=== PATIENT | female | born 1990 | race African-American/Black ===

== ENCOUNTER 2018-05-06 21:08 | Emergency (ER) | payer MEDICAID ==
[~2018-05-06] VITALS: Ht 172.7 cm; Wt 81.0 kg
[~2018-05-06 21:08] MED LIST: METFORMIN; PREN-88; VIC; [UNRECOGNIZED DRUG - CODE]
[2018-05-06 21:27] VITALS: BP 153/87
== END 2018-05-07 00:29 | disposition left against medical advice (07) ==
LOC: ER 21:08
DX: Z53.21 Procedure and treatment not carried out due to patient leaving prior to being seen by health care provider (principal)

== ENCOUNTER 2021-11-23 09:06 | Emergency (ER) | payer MEDICAID ==
[~2021-11-23] VITALS: Ht 167.6 cm; Wt 70.0 kg
[2021-11-23] MEDS ORDERED: MAGNESIUM/ALUMINUM HYDROXIDE/SIMETHICONE 30ML UDC PO STA (09:23)
[2021-11-23] MEDS ORDERED: FAMOTIDINE 20MG/2ML VIAL IV STA (09:23)
[2021-11-23] MEDS ORDERED: SODIUM CHLORIDE 0.9% 1,000 ML IV ONE (09:30)
[2021-11-23] MEDS ORDERED: HALOPERIDOL LACTATE 5MG/ML VIAL IM ONE (09:30)
[2021-11-23 09:31] LABS: BASOPHILS % 0.3 % (0.0-2.0); EOSINOPHILS % 0.1 % (0.0-5.0); HEMATOCRIT. 42.4 % (36.0-48.0); HEMOGLOBIN. 14.4 g/dL (12.0-16.0); LYMPHOCYTES % 19.8 % (20.0-50.0); MEAN CORPUSCULAR HEMOGLOBIN 30.6 pg (28.0-32.0); MEAN CORPUSCULAR VOLUME 89.9 fL (81.0-99.0); MONOCYTES % 4.5 % (2.0-8.0); NEUTROPHILS % 75.3 % (40.0-76.0); PLATELET 185 x1000/uL (130-400); RED BLOOD CELL COUNT 4.71 mill/uL (4.2-5.4); RED CELL DISTRIBUTION WIDTH 12.8 % (11.6-14.6)
[2021-11-23 09:41] LABS: CHLORIDE 102 mEq/L (98-107)
[2021-11-23 09:43] LABS: HCG SCREEN NEGATIVE
[2021-11-23 09:45] LABS: ETHANOL BLOOD < 10 mg/dL
[2021-11-23] MEDS ORDERED: METOCLOPRAMIDE HCL 10MG/2ML VIAL IV NR (10:45)
[2021-11-23] MEDS ORDERED: MORPHINE SULFATE 4 MG/ML CPJ (NOT FOR IM USE) IV NR (10:45)
[2021-11-23 11:11] VITALS: BP 183/93
[2021-11-23] MEDS ORDERED: NAP5EC MT (12:49)
[2021-11-23] MEDS ORDERED: MAG355OR20 PO (12:49)
[2021-11-23] MEDS ORDERED: METO-293 MT (12:49)
== END 2021-11-23 13:20 | disposition home or self-care (01) ==
LOC: ER 09:14
DX: N20.0 Calculus of kidney (principal); E11.9 Type 2 diabetes mellitus without complications
CPT/HCPCS: 36415; 71045; 74176; 76700; 80053; 80320; 83605; 83690; 84703; 85025; 96361; 96372; 96374; 96375; 99285; J1630; J2270; J2765; J3490; J7030; G0480

== ENCOUNTER 2021-11-26 16:53 | Emergency (ER) | payer BC, MEDICAID ==
[~2021-11-26] VITALS: Ht 167.6 cm; Wt 87.0 kg
[~2021-11-26 16:53] MED LIST changes: +MAG355OR20 PO; +METO-293 MT; +NAP5EC MT
[2021-11-26] MEDS ORDERED: MORPHINE SULFATE 4 MG/ML CPJ (NOT FOR IM USE) IV STA (17:27)
[2021-11-26] MEDS ORDERED: ONDANSETRON HCL 4MG/2ML INJ IV STA (17:27)
[2021-11-26] MEDS ORDERED: SODIUM CHLORIDE 0.9% 1,000 ML IV ONE (17:30)
[2021-11-26 18:30] LABS: BASOPHILS % 0.7 % (0.0-2.0); EOSINOPHILS % 0.3 % (0.0-5.0); HEMATOCRIT. 40.7 % (36.0-48.0); HEMOGLOBIN. 14.2 g/dL (12.0-16.0); LYMPHOCYTES % 29.8 % (20.0-50.0); MEAN CORPUSCULAR HEMOGLOBIN 30.9 pg (28.0-32.0); MEAN CORPUSCULAR VOLUME 88.8 fL (81.0-99.0); MONOCYTES % 7.5 % (2.0-8.0); NEUTROPHILS % 61.7 % (40.0-76.0); RED BLOOD CELL COUNT 4.59 mill/uL (4.2-5.4); RED CELL DISTRIBUTION WIDTH 12.8 % (11.6-14.6)
[2021-11-26 18:31] LABS: CHLORIDE 99 mEq/L (98-107)
[2021-11-26 18:36] LABS: HCG SCREEN NEGATIVE
[2021-11-26 18:50] LABS: MEAN PLATELET VOLUME 10.8 fl (7.4-10.4); PLATELET 136 x1000/uL (130-400)
[2021-11-26] MEDS ORDERED: MORPHINE SULFATE 4 MG/ML CPJ (NOT FOR IM USE) IV NR (20:45)
[2021-11-26] MEDS ORDERED: METOCLOPRAMIDE HCL 10MG/2ML VIAL IV NR (20:45)
[2021-11-26 20:51] VITALS: BP 146/87
[2021-11-26] MEDS ORDERED: METO-293 MT (21:41)
[2021-11-26] MEDS ORDERED: DICY10CA88 MT (21:41)
[2021-11-26 21:47] LABS: CLARITY URINE CLOUDY (CLEAR); COLOR URINE ORANGE (YELLOW); KETONES URINE 3+ (NEGATIVE); LEUKOCYTE ESTERASE URINE TRACE (NEGATIVE); NITRITE URINE NEGATIVE (NEGATIVE); OCCULT BLOOD URINE 3+ (NEGATIVE); PROTEIN URINE 2+ (NEGATIVE); SPECIFIC GRAVITY URINE 1.056 (1.005-1.030)
== END 2021-11-26 22:48 | disposition home or self-care (01) ==
LOC: ER 16:53
DX: R10.84 Generalized abdominal pain (principal); E11.65 Type 2 diabetes mellitus with hyperglycemia; I10 Essential (primary) hypertension; E86.0 Dehydration; R00.0 Tachycardia, unspecified; R11.2 Nausea with vomiting, unspecified; Z79.84 Long term (current) use of oral hypoglycemic drugs; Z79.899 Other long term (current) drug therapy
CPT/HCPCS: 36415; 74177; 80053; 81003; 81025; 83690; 84484; 84703; 85025; 93005; 96361; 96374; 96375; 96376; 99285; J2270; J2405; J2765; J7030

== ENCOUNTER 2022-03-10 11:10 | Emergency (ER) | payer BC, MEDICAID ==
[~2022-03-10] VITALS: Ht 167.6 cm; Wt 70.0 kg
[~2022-03-10 11:10] MED LIST changes: +DICY10CA88 MT
[2022-03-10 11:34] VITALS: BP 144/91
[2022-03-10] MEDS ORDERED: BACITRACIN ZINC OINT UDPKT TOP ONE (14:45)
[2022-03-10] MEDS ORDERED: LIDOCAINE HCL/PF 1% 10 MG/ML 5ML VIAL INFIL ONE (14:45)
[2022-03-10] MEDS ORDERED: SULF1TAB48 MT (16:28)
[2022-03-10] MEDS ORDERED: AMOX1TAB16 MT (16:28)
== END 2022-03-10 16:45 | disposition home or self-care (01) ==
LOC: ER 11:13
DX: N76.4 Abscess of vulva (principal); E11.9 Type 2 diabetes mellitus without complications; Z98.890 Other specified postprocedural states; Z79.899 Other long term (current) drug therapy
CPT/HCPCS: 10060; 99282; 99283

== ENCOUNTER 2022-03-12 18:45 | Emergency (ER) | payer MEDICAID ==
[~2022-03-12] VITALS: Ht 167.6 cm; Wt 70.0 kg
[~2022-03-12 18:45] MED LIST changes: +AMOX1TAB16 MT; +SULF1TAB48 MT
[2022-03-12] MEDS ORDERED: ACETAMINOPHEN 325MG TABLET PO NR (22:00)
[2022-03-12] MEDS: ACETAMINOPHEN 325MG TABLET PO ONE (22:04)
[2022-03-12] MEDS: LIDOCAINE 5% PATCH TOP SCH (22:04)
[2022-03-12] MEDS: LIDOCAINE 5% PATCH TOP ONE (22:57)
[2022-03-12] MEDS ORDERED: IBUP-2029 MT (23:15)
[2022-03-12] MEDS ORDERED: LIDO700A15 TP (23:15)
[2022-03-12] MEDS ORDERED: BACL-141 MT (23:15)
[2022-03-12] MEDS ORDERED: MED4 MT (23:15)
[2022-03-12 23:25] VITALS: BP 146/89
[2022-03-12] MEDS: HYDROCODONE/ACETAMINOPHEN 5/325MG TABLET PO ONE (23:25)
== END 2022-03-12 23:31 | disposition home or self-care (01) ==
LOC: ER 18:45
DX: S13.4XXA Sprain of ligaments of cervical spine, initial encounter (principal); M25.512 Pain in left shoulder; M25.552 Pain in left hip; E11.9 Type 2 diabetes mellitus without complications; I10 Essential (primary) hypertension; Z13.9 Encounter for screening, unspecified; Z79.899 Other long term (current) drug therapy; V49.9XXA Car occupant (driver) (passenger) injured in unspecified traffic accident, initial encounter; Y93.89 Activity, other specified; Y92.89 Other specified places as the place of occurrence of the external cause; Y99.8 Other external cause status
CPT/HCPCS: 73502; 81025; 99283

== ENCOUNTER 2022-06-07 14:49 | Emergency (ER) | payer BC, MEDICAID ==
[~2022-06-07] VITALS: Ht 167.6 cm; Wt 77.0 kg
[~2022-06-07 14:49] MED LIST changes: +BACL-141 MT; +IBUP-2029 MT; +LIDO700A15 TP; +MED4 MT
[2022-06-07 14:53] VITALS: BP 171/90
== END 2022-06-07 17:28 | disposition left against medical advice (07) ==
LOC: ER 14:49
DX: Z53.21 Procedure and treatment not carried out due to patient leaving prior to being seen by health care provider (principal)
CPT/HCPCS: 82962

== ENCOUNTER 2023-07-24 09:56 | Emergency (ER) | payer BC ==
[~2023-07-24] VITALS: Ht 167.6 cm; Wt 73.0 kg
[~2023-07-24 09:56] MED LIST changes: +DICY-18 MT; -DICY10CA88 MT
[2023-07-24 10:00] VITALS: BP 138/88; PULSE 91; RESP 16; TEMP 98.1; O2SAT 99
[2023-07-24] MEDS ORDERED: SODIUM CHLORIDE 0.9% 1,000 ML IV ONE ×2 (10:15)
[2023-07-24 10:56] LABS: BASOPHILS % 0.6 % (0.0-2.0); EOSINOPHILS % 0.9 % (0.0-5.0); HEMATOCRIT. 39.7 % (36.0-48.0); HEMOGLOBIN. 13.7 g/dL (12.0-16.0); LYMPHOCYTES % 39.3 % (20.0-50.0); MEAN CORPUSCULAR HEMOGLOBIN 31.4 pg (28.0-32.0); MEAN CORPUSCULAR HGB CONC 34.4 g/dL (31.0-37.0); MEAN CORPUSCULAR VOLUME 91.3 fL (81.0-99.0); MEAN PLATELET VOLUME 11.2 fl (7.4-10.4); MONOCYTES % 7.4 % (2.0-8.0); NEUTROPHILS % 51.8 % (40.0-76.0); PLATELET 180 x1000/uL (130-400); RED BLOOD CELL COUNT 4.35 mill/uL (4.2-5.4); RED CELL DISTRIBUTION WIDTH 11.6 % (11.6-14.6); WHITE BLOOD COUNT 5.1 x1000/uL (4.5-11.0)
[2023-07-24 11:39] LABS: HCG SCREEN NEGATIVE
[2023-07-24 12:08] LABS: ALANINE AMINOTRANSFERASE 13 IU/L (10-49); ALBUMIN 4.3 g/dL (3.2-4.8); ASPARTATE AMINOTRANSFERASE 12 IU/L (<34); BILIRUBIN TOTAL 0.6 mg/dL (0.1-1.0); CALCIUM 9.6 mg/dL (8.7-10.4); CARBON DIOXIDE 28 mEq/L (21-32); CHLORIDE 98 mEq/L (98-107); CREATININE 0.7 mg/dL (0.6-1.0); GLUCOSE 342 mg/dL (70-105); PROTEIN TOTAL 7.6 g/dL (6.0-8.3); SODIUM 134 mEq/L (136-145); UREA NITROGEN BLOOD 13 mg/dL (9-23)
[2023-07-24] MEDS ORDERED: METF-414 MT (13:07)
== END 2023-07-24 13:25 | disposition home or self-care (01) ==
LOC: ER 09:56
DX: E11.65 Type 2 diabetes mellitus with hyperglycemia (principal); E11.9 Type 2 diabetes mellitus without complications; Z79.899 Other long term (current) drug therapy; Z98.51 Tubal ligation status; Z98.890 Other specified postprocedural states
CPT/HCPCS: 80053; 82962; 84703; 85025; 36415; 96360; 99283; J7030; Z7610 ×2

== ENCOUNTER 2024-04-27 08:53 | Inpatient (IN) | payer BC, MEDICAID ==
[~2024-04-27] VITALS: Ht 167.6 cm; Wt 78.0 kg
[~2024-04-27 08:53] MED LIST changes: -MAG355OR20 PO; -MED4 MT; +METF-414 MT; +METH4TAB95 MT; +[UNRECOGNIZED DRUG - CODE] PO
[2024-04-27 10:27] LABS: BASOPHILS % 0.5 % (0.0-2.0); EOSINOPHILS % 0.1 % (0.0-5.0); HEMATOCRIT. 41.1 % (36.0-48.0); HEMOGLOBIN. 13.9 g/dL (12.0-16.0); LYMPHOCYTES % 19.4 % (20.0-50.0); MEAN CORPUSCULAR HEMOGLOBIN 31.4 pg (28.0-32.0); MEAN CORPUSCULAR HGB CONC 33.8 g/dL (31.0-37.0); MEAN CORPUSCULAR VOLUME 92.9 fL (81.0-99.0); MEAN PLATELET VOLUME 10.7 fl (7.4-10.4); MONOCYTES % 5.3 % (2.0-8.0); NEUTROPHILS % 74.7 % (40.0-76.0); PLATELET 219 x1000/uL (130-400); RED BLOOD CELL COUNT 4.42 mill/uL (4.2-5.4); WHITE BLOOD COUNT 6.4 x1000/uL (4.5-11.0)
[2024-04-27 10:35] LABS: CHLORIDE 100 mEq/L (98-107); POTASSIUM 3.7 mEq/L (3.5-5.1); SODIUM 134 mEq/L (136-145)
[2024-04-27 10:36] LABS: CALCIUM 9.2 mg/dL (8.7-10.4); CARBON DIOXIDE 23 mEq/L (21-32)
[2024-04-27 10:41] LABS: CREATININE 0.7 mg/dL (0.6-1.0); GLUCOSE 268 mg/dL (70-105); UREA NITROGEN BLOOD 11 mg/dL (9-23)
[2024-04-27] MEDS: ONDANSETRON HCL 4MG/2ML INJ IV ONE ×2 (10:41→13:53)
[2024-04-27] MEDS: SODIUM CHLORIDE 0.9% 1,000 ML IV ONE ×2 (10:41→13:54)
[2024-04-27] MEDS: MORPHINE SULFATE 4 MG/ML INJ (FOR IV/IM USE) IV ONE (10:41)
[2024-04-27] MEDS: HYDRALAZINE 20MG/ML VIAL IV ONE (10:41)
[2024-04-27 10:42] LABS: HCG SCREEN NEGATIVE
[2024-04-27] MEDS: PANTOPRAZOLE SODIUM 40 MG/VIAL IV NR (12:47)
[2024-04-27] MEDS: HYDROMORPHONE HCL/PF 2MG/ML INJ IV ONE (13:54)
[2024-04-27] MEDS ORDERED: MAGNESIUM/ALUMINUM HYDROXIDE/SIMETHICONE 30ML UDC PO PRN (15:15)
[2024-04-27] MEDS ORDERED: CLONIDINE 0.1MG TABLET PO PRN (15:15)
[2024-04-27] MEDS ORDERED: ACETAMINOPHEN 650MG SUPP PR PRN ×2 (15:15)
[2024-04-27] MEDS ORDERED: IPRATROPIUM/ALBUTEROL 0.5-3(2.5)MG/3ML NEB HHN PRN (15:15)
[2024-04-27] MEDS ORDERED: NALOXONE HCL 0.4MG/ML VIAL IV PRN (15:45)
[2024-04-27] MEDS: DEXT 5%/0.9% NACL 1,000 ML IV SCH (15:58)
[2024-04-27 16:42] LABS: ALANINE AMINOTRANSFERASE 23 IU/L (10-49); ALBUMIN 4.6 g/dL (3.2-4.8); ASPARTATE AMINOTRANSFERASE 18 IU/L (<34); BILIRUBIN DIRECT 0.2 mg/dL (<=3.0); BILIRUBIN TOTAL 0.8 mg/dL (0.1-1.0); PROTEIN TOTAL 7.8 g/dL (6.0-8.3)
[2024-04-27] MEDS ORDERED: DEXTROSE 50% WATER 50ML SYRINGE IV PRN (17:15)
[2024-04-27] MEDS ORDERED: HYDRALAZINE 20MG/ML VIAL IV PRN (17:15)
[2024-04-27 17:41] LABS: CLARITY URINE CLEAR (CLEAR); COLOR URINE YELLOW (YELLOW); GLUCOSE URINE 3+ (NEGATIVE); KETONES URINE 4+ (NEGATIVE); LEUKOCYTE ESTERASE URINE NEGATIVE (NEGATIVE); NITRITE URINE NEGATIVE (NEGATIVE); OCCULT BLOOD URINE NEGATIVE (NEGATIVE); PROTEIN URINE 2+ (NEGATIVE); SPECIFIC GRAVITY URINE 1.036 (1.005-1.030); UROBILINOGEN URINE 0.2 E.U./dL (0.2-1.0)
[2024-04-27] MEDS: INSULIN LISPRO 100 UNITS/ML SUBCUT SCH (17:41)
[2024-04-27 17:44] LABS: *AMPHETAMINES SCREEN URINE NEGATIVE (NEGATIVE); *BARBITURATES SCREEN URINE NEGATIVE (NEGATIVE); *BENZODIAZEPINES SCREEN URINE NEGATIVE (NEGATIVE); *COCAINE SCREEN URINE NEGATIVE (NEGATIVE); METHADONE URINE SCREEN NEGATIVE (NEGATIVE)
[2024-04-27 17:45] LABS: CANNABINOID URINE SCREEN PRESUMPTIVE POSITIVE (NEGATIVE); ECSTASY MDMA SCREEN URINE NEGATIVE (NEGATIVE); OPIATES URINE SCREEN PRESUMPTIVE POSITIVE (NEGATIVE); PHENCYCLIDINE URINE SCREEN NEGATIVE (NEGATIVE)
[2024-04-27 18:31] LABS: RBC URINE 0-2 /hpf (0-2); SQUAMOUS EPITHELIAL CELL URINE 1+ /lpf (RARE/1+); WBC URINE 0-2 /hpf (0-2)
[2024-04-27 18:32] LABS: BACTERIA URINE 2+
[2024-04-27] MEDS: SODIUM CHLORIDE 0.9% 1,000 ML IV SCH (19:13)
[2024-04-27] MEDS: CEFTRIAXONE 1GM/50ML 50 ML IV NR (19:15)
[2024-04-27] MEDS: MORPHINE SULFATE 2 MG/ML INJ (NOT FOR IM USE) IV PRN (19:25)
[2024-04-27] MEDS: ONDANSETRON HCL 4MG/2ML INJ IV PRN (19:25)
[2024-04-27 22:41] LABS: TROPONIN I HIGH SENSITIVITY < 4 ng/L (3.0-34)
[2024-04-28] MEDS: METRONIDAZOLE 500 MG PREMIX 100 ML IV NR (03:50)
[2024-04-28] MEDS: BLOOD SUGAR DIAGNOSTIC STRIP TEST SCH (06:45)
[2024-04-28 06:54] LABS: TRIGLYCERIDE 114 mg/dL (0-150)
[2024-04-28 06:55] LABS: LDL CHOLESTEROL 258 mg/dL (5-100)
[2024-04-28 06:56] LABS: CHOLESTEROL 287 mg/dL (<200); HDL CHOLESTEROL 39 mg/dL (>65)
[2024-04-28 06:58] LABS: THYROID STIMULATING HORMONE 0.61 uIU/mL (0.55-4.78)
[2024-04-28 06:59] LABS: TROPONIN I HIGH SENSITIVITY < 4 ng/L (3.0-34)
[2024-04-28 07:43] LABS: BASOPHILS % 0.4 % (0.0-2.0); EOSINOPHILS % 0.4 % (0.0-5.0); HEMATOCRIT. 40.2 % (36.0-48.0); HEMOGLOBIN. 13.6 g/dL (12.0-16.0); LYMPHOCYTES % 35.5 % (20.0-50.0); MEAN CORPUSCULAR HEMOGLOBIN 31.7 pg (28.0-32.0); MEAN CORPUSCULAR HGB CONC 33.9 g/dL (31.0-37.0); MEAN CORPUSCULAR VOLUME 93.3 fL (81.0-99.0); MEAN PLATELET VOLUME 10.6 fl (7.4-10.4); MONOCYTES % 8.4 % (2.0-8.0); NEUTROPHILS % 55.3 % (40.0-76.0); PLATELET 208 x1000/uL (130-400); RED BLOOD CELL COUNT 4.31 mill/uL (4.2-5.4); RED CELL DISTRIBUTION WIDTH 11.9 % (11.6-14.6); WHITE BLOOD COUNT 6.1 x1000/uL (4.5-11.0)
[2024-04-28] MEDS: PANTOPRAZOLE SODIUM 40 MG/VIAL IV SCH ×2 (09:06→20:31)
[2024-04-28] MEDS: MORPHINE SULFATE 2 MG/ML INJ (NOT FOR IM USE) IV PRN (09:07)
[2024-04-28] MEDS: LOSARTAN 50 MG TABLET PO SCH (09:12)
[2024-04-28 09:34] VITALS: BP 178/108; PULSE 104; RESP 22; TEMP 35.66952; O2SAT 100
[2024-04-28 09:36] VITALS: BP 178/108; PULSE 104; RESP 22; TEMP 36.4736
[2024-04-28] MEDS: ENOXAPARIN 40MG/0.4ML SYR SUBCUT SCH (11:37)
[2024-04-28 12:05] VITALS: BP 102/70; PULSE 94; RESP 18; TEMP 36.55848; O2SAT 98
[2024-04-28 16:04] VITALS: BP 166/78; PULSE 76; RESP 18; TEMP 36.6696; O2SAT 99
[2024-04-28 20:00] VITALS: BP 130/79; PULSE 90; RESP 20; TEMP 36.78072; O2SAT 98
[2024-04-28] MEDS: ATORVASTATIN CALCIUM 40MG TABLET PO SCH (20:39)
[2024-04-28] MEDS: INSULIN GLARGINE 100 UNITS/ML SUBCUT SCH (21:28)
[2024-04-29] VITALS: BP 130/84; PULSE 77; RESP 19; TEMP 37.44744; O2SAT 100
[2024-04-29 04:00] VITALS: BP 152/87; PULSE 83; RESP 16; TEMP 37.00296; O2SAT 100
[2024-04-29 07:49] LABS: CARBON DIOXIDE 25 mEq/L (21-32); CHLORIDE 102 mEq/L (98-107); POTASSIUM 3.4 mEq/L (3.5-5.1); SODIUM 134 mEq/L (136-145)
[2024-04-29 07:51] LABS: CALCIUM 8.5 mg/dL (8.7-10.4)
[2024-04-29 07:55] LABS: CREATININE 0.7 mg/dL (0.6-1.0); GLUCOSE 258 mg/dL (70-105); UREA NITROGEN BLOOD 14 mg/dL (9-23)
[2024-04-29 07:58] LABS: PHOSPHORUS 2.3 mg/dL (2.5-4.9)
[2024-04-29 08:03] VITALS: BP 176/126; PULSE 88; RESP 20; TEMP 36.55848; O2SAT 97
[2024-04-29] MEDS ORDERED: AMLODIPINE 5MG TABLET PO SCH (09:00)
[2024-04-29] MEDS: AMLODIPINE 5MG TABLET PO SCH (09:23)
[2024-04-29] MEDS: POTASSIUM CHLORIDE 20MEQ TABLET SR PO NR (10:11)
[2024-04-29] MEDS: MAGNESIUM 2 G PREMIX 50 ML IV NR (10:49)
[2024-04-29] MEDS ORDERED: LIP40 PO (12:12)
[2024-04-29] MEDS ORDERED: PANT40TA51 PO (12:12)
[2024-04-29 12:23] VITALS: BP 154/88; PULSE 74; RESP 20; TEMP 36.6696; TEMP 36.66960; O2SAT 100
[2024-04-29 13:42] VITALS: BP 150/88; PULSE 78; TEMP 98; O2SAT 100
[2024-05-03] MEDS ORDERED: DICY-18 MT (15:22)
[2024-05-03] MEDS ORDERED: LIP40 MT (15:23)
== END 2024-04-29 16:20 | disposition home or self-care (01) | DRG 241 ==
LOC: ER 08:53 → 5WST 13:59 → EDBEDREQ 14:00 → EDBEDREQTM 14:00 → 8WST 04-28 08:56
PROVIDERS: ADMIT Internal Medicine; ATTEND Internal Medicine
DX: K29.70 Gastritis, unspecified, without bleeding (principal); K76.0 Fatty (change of) liver, not elsewhere classified; K80.70 Calculus of gallbladder and bile duct without cholecystitis without obstruction; K57.30 Diverticulosis of large intestine without perforation or abscess without bleeding; E11.65 Type 2 diabetes mellitus with hyperglycemia; E78.5 Hyperlipidemia, unspecified; I16.9 Hypertensive crisis, unspecified; I10 Essential (primary) hypertension; Z79.4 Long term (current) use of insulin; Z79.84 Long term (current) use of oral hypoglycemic drugs; Z87.442 Personal history of urinary calculi; Z98.51 Tubal ligation status
CPT/HCPCS: 36415; 74176; 76700; 80048; 80061; 80076; 80305; 81003; 82962; 83036; 83735; 84100; 84439; 84443; 84484; 84703; 85025; 99285; J0360; J0696; J1170; J1650; J1815; J2270; J2405; J2470; J3475; J3490; J7030